=== PATIENT | female | born 1985 | race Caucasian/White ===

== ENCOUNTER 2023-09-08 03:57 | Emergency (ER) | payer MEDICAID ==
[~2023-09-08] VITALS: Ht 157.5 cm; Wt 80.0 kg
[2023-09-08 04:16] VITALS: TEMP 98.4; O2SAT 100
[2023-09-08] MEDS ORDERED: ONDANSETRON HCL 4MG/2ML INJ IV STA (07:46)
[2023-09-08] MEDS ORDERED: MORPHINE SULFATE 4 MG/ML CPJ (NOT FOR IM USE) IV STA (07:46)
[2023-09-08] MEDS ORDERED: KETOROLAC 60MG/2ML VIAL IM ONE (08:00)
[2023-09-08] MEDS ORDERED: SODIUM CHLORIDE 0.9% 1,000 ML IV ONE (08:00)
[2023-09-08 08:21] LABS: BASOPHILS % 0.8 % (0.0-2.0); EOSINOPHILS % 0.2 % (0.0-5.0); HEMATOCRIT. 42.2 % (36.0-48.0); HEMOGLOBIN. 14.4 g/dL (12.0-16.0); LYMPHOCYTES % 20.2 % (20.0-50.0); MEAN CORPUSCULAR HEMOGLOBIN 30.4 pg (28.0-32.0); MEAN CORPUSCULAR HGB CONC 34.2 g/dL (31.0-37.0); MEAN CORPUSCULAR VOLUME 88.9 fL (81.0-99.0); MEAN PLATELET VOLUME 9.6 fl (7.4-10.4); MONOCYTES % 4.4 % (2.0-8.0); NEUTROPHILS % 74.4 % (40.0-76.0); PLATELET 227 x1000/uL (130-400); RED BLOOD CELL COUNT 4.74 mill/uL (4.2-5.4); WHITE BLOOD COUNT 9.2 x1000/uL (4.5-11.0)
[2023-09-08 08:40] LABS: HCG SCREEN NEGATIVE
[2023-09-08 08:43] LABS: ALANINE AMINOTRANSFERASE 379 IU/L (10-49); ALBUMIN 4.6 g/dL (3.2-4.8); ASPARTATE AMINOTRANSFERASE 210 IU/L (<34); BILIRUBIN TOTAL 0.3 mg/dL (0.1-1.0); CALCIUM 9.5 mg/dL (8.7-10.4); CARBON DIOXIDE 26 mEq/L (21-32); CHLORIDE 103 mEq/L (98-107); CREATININE 0.8 mg/dL (0.6-1.0); GLUCOSE 128 mg/dL (70-105); POTASSIUM 4.1 mEq/L (3.5-5.1); PROTEIN TOTAL 7.7 g/dL (6.0-8.3); SODIUM 138 mEq/L (136-145); UREA NITROGEN BLOOD 19 mg/dL (9-23)
[2023-09-08 08:45] LABS: CLARITY URINE CLEAR (CLEAR); COLOR URINE YELLOW (YELLOW); GLUCOSE URINE NEGATIVE (NEGATIVE); KETONES URINE NEGATIVE (NEGATIVE); LEUKOCYTE ESTERASE URINE NEGATIVE (NEGATIVE); NITRITE URINE NEGATIVE (NEGATIVE); OCCULT BLOOD URINE TRACE (NEGATIVE); PROTEIN URINE NEGATIVE (NEGATIVE); SPECIFIC GRAVITY URINE 1.015 (1.005-1.030); UROBILINOGEN URINE 0.2 E.U./dL (0.2-1.0)
[2023-09-08 08:50] LABS: BACTERIA URINE 1+; SQUAMOUS EPITHELIAL CELL URINE 2+ /lpf (RARE/1+); WBC URINE 0-2 /hpf (0-2); YEAST URINE NONE SEEN
[2023-09-08] MEDS ORDERED: TAMSULOSIN HCL 0.4MG SR CAPSULE PO NR (11:15)
[2023-09-08] MEDS ORDERED: MORPHINE SULFATE 4 MG/ML CPJ (NOT FOR IM USE) IV NR (11:15)
[2023-09-08] MEDS ORDERED: ACETAMINOPHEN 325MG TABLET PO NR (11:15)
[2023-09-08] MEDS ORDERED: IBUP-2030 MT (11:18)
[2023-09-08] MEDS ORDERED: HYDR-4001 MT (11:18)
[2023-09-08] MEDS ORDERED: TAMS-11 MT (11:18)
[2023-09-08 12:21] VITALS: BP 108/72; PULSE 78; RESP 16
== END 2023-09-08 13:01 | disposition home or self-care (01) ==
LOC: ER 04:06
DX: N20.0 Calculus of kidney (principal); K76.0 Fatty (change of) liver, not elsewhere classified; K80.20 Calculus of gallbladder without cholecystitis without obstruction
CPT/HCPCS: 80053; 81003; 81025; 84703; 83690; 85025; 36415; 74176; 76705; 96361; 96372; 96374; 96375; 96376; 99285; J1885; J2405; J2270; J7030; Z7610 ×4